=== PATIENT | female | born 1985 | race Caucasian/White ===

== ENCOUNTER → 2017-04-21 | Outpatient (CLI) | payer OTHER ==
--- NOTE | 2017-04-21 15:50 | CT ---
EXAMINATION TYPE: CT abdomen pelvis wo con DATE OF EXAM: 04/21/2017 COMPARISON: 03/16/2010 HISTORY: Painful urination and hematuria. CT DLP: 224.80 mGycm Automated exposure control for dose reduction was used. TECHNIQUE: Helical acquisition of images was performed from the lung bases through the pelvis. FINDINGS: LUNG BASES: No significant abnormality is appreciated. LIVER/GB: No significant abnormality is appreciated within the liver. Gallbladder is surgically absen t. PANCREAS: No significant abnormality is seen. SPLEEN: No significant abnormality is seen. ADRENALS: No significant abnormality is seen. KIDNEYS: 2 mm left lower pole nonobstructing renal calculus is present. No ureteral calculus or hydro nephrosis is seen bilaterally. No right-sided renal calculi are present. FREE AIR: No free air is visualized ADENOPATHY: None visualized URINARY BLADDER: Urinary bladder is nondistended and cannot be evaluated. OSSEOUS STRUCTURES: Solitary sclerotic focus is seen within the left proximal femur, most commonly r elating to benign bone island. This is unchanged in the prior exam of 03/16/2010 and presumed to be be nign. BOWEL: No significant abnormality is seen. Appendix is air-filled and within normal limits of size. There is mild diastases recti. IMPRESSION: 1. NONOBSTRUCTING 2 MM LEFT RENAL CALCULUS. NO EVIDENCE OF OBSTRUCTIVE UROPATHY BILATERALLY. 2. URINARY BLADDER IS DECOMPRESSED AND UNABLE TO BE ASSESSED BY CT. CORRELATION WITH URINALYSIS IS RE COMMENDED.
== END | disposition home or self-care (01) ==
LOC: RADCTMAIN 15:04
PROVIDERS: ATTEND Family Medicine
DX: N20.0 Calculus of kidney (principal)
CPT/HCPCS: 74176

== ENCOUNTER → 2017-08-09 | Outpatient (CLI) | payer OTHER | END | disposition home or self-care (01) | LOC: LABWHC1 13:00 | PROVIDERS: ATTEND Nurse Practitioner Family | DX: B71.9 Cestode infection, unspecified (principal) | CPT/HCPCS: 87045; 87046 ==

== ENCOUNTER 2018-05-30 15:46 | Emergency (ER) | payer OTHER ==
[2018-05-30] MEDS ORDERED: SODIUM CHLORIDE 0.9% 1,000 ML IV ONE (16:02)
[2018-05-30] MEDS ORDERED: ACETAMINOPHEN TAB 325 MG TAB PO STA (16:13)
--- NOTE | 2018-05-30 16:26 | ED ---
Abdominal Pain HPI - General Chief Complaint: Abdominal Pain Stated Complaint: Possible Kidney infection Time Seen by Provider: 05/30/18 15:53 Source: patient Mode of arrival: ambulatory Limitations: no limitations - History of Present Illness Initial Comments: 33-year-old female with history of kidney stones, ovarian cysts, endometriosis presenting today for chief complaint of bilateral mid to low back pain and pain with urination. Patient states that she has had local kidney stones in the past , she has not followed up with urology however she passes stones every 6 months she states that the symptoms at that time his pain with urination sometimes there is hematuria and she states the stones in the toilet. Patient states that for the past few weeks she has had the symptoms of pain with urination identical to when she has had still for the past she denies any hematuria at this time. Yesterday she began noticing bilateral mid back pain she stated at the level of the kidneys and chills. The pain fluctuates in intensity, she states it's worse it is 8 out of 10 currently is a 5 out of 10 she describes as a dull aching pain. Patient was concerned about a kidney infection when symptoms persisted today she presented for evaluation. Prior to arrival at 1pm pt took 800mg of ibuprofen for pain mgmt. Patient denies a recorded temperature however she states she has felt warm. Patient denies any abdominal pain, nausea, vomiting, diarrhea, recent travel, vaginal bleeding, chest pain, shortness of breath, dyspnea on exertion, frequency, urgency, hematochezia, melena, headache, dizziness. Associated symptoms. Upon arrival patient appears well, nontoxic. Initial HR elevated at 108 bpm. Remainder of ROS (-) - Related Data Previous Rx's Medication Instructions Recorded Ciprofloxacin HCl [Cipro] 500 mg PO Q12H 7 Days #14 tab 05/30/18 Allergies Allergy/AdvReac Type Severity Reaction Status Date / Time Penicillins Allergy Unknown Verified 05/30/18 16:37 Childhood Sulfa (Sulfonamide Allergy Nausea & Verified 05/30/18 16:37 Antibiotics) Vomiting Review of Systems ROS Statement: Those systems with pertinent positive or pertinent negative responses have been documented in the HPI. ROS Other: All systems not noted in ROS Statement are negative. Constitutional: Reports: fever (pt stated she felt warm), chills. Denies: night sweats Eyes: Denies: eye pain ENT: Denies: ear pain, throat pain Respiratory: Denies: cough, dyspnea, wheezes, hemoptysis, stridor Cardiovascular: Denies: chest pain, palpitations, dyspnea on exertion Endocrine: Denies: fatigue Gastrointestinal: Denies: abdominal pain, nausea, vomiting, diarrhea, constipation, hematemesis, melena, hematochezia Genitourinary: Reports: dysuria, hematuria (none currently, but has had in past) . Denies: urgency, frequency, discharge Musculoskeletal: Reports: back pain (mid/low back pain b/l) Skin: Denies: rash, lesions Neurological: Denies: headache, weakness, numbness, paresthesias, confusion, abnormal gait Past Medical History Past Medical History: Asthma, Thyroid Disorder Additional Past Medical History / Comment(s): kidney stones History of Any Multi-Drug Resistant Organisms: None Reported Past Surgical History: Tonsillectomy, Tubal Ligation Additional Past Surgical History / Comment(s): tonsillectomy 1992, gallbladder 2004, uterine ablation Past Anesthesia/Blood Transfusion Reactions: No Reported Reaction Past Psychological History: No Psychological Hx Reported Smoking Status: Never smoker Past Alcohol Use History: Rare Past Drug Use History: None Reported - Past Family History Father Family Medical History: Coronary Artery Disease (CAD) General Exam - General Exam Comments Initial Comments: General: The patient is awake and alert, in no distress, and does not appear acutely ill. Eye: Pupils are equal, round and reactive to light, extra-ocular movements are intact. No nystagmus. There is normal conjunctiva bilaterally. No signs of icterus. Ears, nose, mouth and throat: There are moist mucous membranes and no oral lesions. Neck: The neck is supple, there is no tenderness or JVD. Cardiovascular: There is a regular rate and rhythm. No murmur, rub or gallop is appreciated. Respiratory: Lungs are clear to auscultation, respirations are non-labored, breath sounds are equal. No wheezes, stridor, rales, or rhonchi. Gastrointestinal: No noted diaphoresis, jaundice, pallor, protecting postures or squirming. Symmetrical pigmentation of abdomen without signs of inflammation, or striae. Umbilicus mildline, inverted without swelling. No dilated veins. No noted abdominal distention. No visible masses. No peristalsis, aortic pulsations, or ventral hernia. Bowel sounds audible in all 4 quadrants, unremarkable. No friction rubs or venous hums. No epigastic, hepatic or abdominal bruits. No tenderness to light or deep palpation. Liver edge, not palpable. Spleen edge, right and left kidney not palpable. Superior bladder margin non-tender. Special Testing: Negative [place], Rovsing, McBurney, Kisha, cutaneous hyperesthesia. Iliopsoas and obturator tests negative bilaterally. Negative Heel Jar test.. No CVA tenderness. Digital rectal exam deferred. Negative campbell turners or cullens sign Musculoskeletal: Normal ROM, no tenderness. Strength 5/5. Sensation intact. Radial pulses equal bilaterally 2+. Neurological: A&O x 3. CN II-XII intact, There are no obvious motor or sensory deficits. Coordination appears grossly intact. Speech is normal. Skin: Skin is warm and dry and no rashes or lesions are noted. Psychiatric: Cooperative, appropriate mood & affect, normal judgment. Limitations: no limitations Course Vital Signs 05/30/18 05/30/18 15:48 20:52 Temperature 98.2 F 97.8 F Pulse Rate 108 H 99 Respiratory 20 18 Rate Blood Pressure 120/81 125/80 O2 Sat by Pulse 96 99 Oximetry Medical Decision Making - Medical Decision Making UA positive for leukocyte esterase or white blood cells and urine bacteria, pending culture. CT of abdomen and pelvis without contrast revealed no evidence of renal calculi or hydronephrosis. There is no stranding noted. All findings were discussed with patient, including incidental finding of ovarian cyst. Patient states that she is aware that this will seek appropriate follow- up. At this time given patient clinical presentation, I feel she has pyelonephritis. Patient was given 2 g Rocephin IVPB as well as 500mg ciprofloxacin by mouth. Patient given outside Rx for ciprofloxacin 500 mg twice a day 7 days. In addition I recommended urology follow-up for chronic kidney stones. Patient is agreeable with plan, denies questions at this time. Pt has no history of immunocompromise, VS stable at this time I feel pt is stable for discharge with f/u with primary and urology. Case discussed with Dr. Toledo who agreed wt impression and plan. Return parameters discussed at length patient who verbalizes understanding. Patient states she is ready for discharge and would like to go home. Patient discharged in stable condition. - Lab Data Result diagrams: 05/30/18 16:28 05/30/18 16:28 Lab Results 05/30/18 05/30/18 05/30/18 Range/Units 16:28 16:28 16:28 WBC 11.5 H (3.8-10.6) k/uL RBC 4.88 (3.80-5.40) m/uL Hgb 14.3 (11.4-16.0) gm/dL Hct 42.1 (34.0-46.0) % MCV 86.4 (80.0-100.0) fL MCH 29.3 (25.0-35.0) pg MCHC 33.9 (31.0-37.0) g/dL RDW 12.5 (11.5-15.5) % Plt Count 283 (150-450) k/uL Neutrophils % 86 % Lymphocytes % 7 % Monocytes % 5 % Eosinophils % 0 % Basophils % 0 % Neutrophils # 9.9 H (1.3-7.7) k/uL Lymphocytes # 0.8 L (1.0-4.8) k/uL Monocytes # 0.5 (0-1.0) k/uL Eosinophils # 0.0 (0-0.7) k/uL Basophils # 0.0 (0-0.2) k/uL Sodium 141 (137-145) mmol/L Potassium 3.6 (3.5-5.1) mmol/L Chloride 108 H (98-107) mmol/L Carbon Dioxide 22 (22-30) mmol/L Anion Gap 11 mmol/L BUN 10 (7-17) mg/dL Creatinine 0.75 (0.52-1.04) mg/dL Est GFR (CKD-EPI)AfAm >90 (>60 ml/min/1.73 sqM) Est GFR (CKD-EPI)NonAf >90 (>60 ml/min/1.73 sqM) Glucose 104 H (74-99) mg/dL Calcium 9.2 (8.4-10.2) mg/dL Total Bilirubin 1.2 (0.2-1.3) mg/dL AST 35 (14-36) U/L ALT 36 (9-52) U/L Alkaline Phosphatase 81 (38-126) U/L Total Protein 7.3 (6.3-8.2) g/dL Albumin 3.9 (3.5-5.0) g/dL Urine Color Yellow Urine Appearance Turbid H (Clear) Urine pH 6.0 (5.0-8.0) Ur Specific [place] 1.019 (1.001-1.035) Urine Protein 2+ H (Negative) Urine Glucose (UA) Negative (Negative) Urine Ketones Negative (Negative) Urine Blood Large H (Negative) Urine Nitrite Negative (Negative) Urine Bilirubin Negative (Negative) Urine Urobilinogen <2.0 (<2.0) mg/dL Ur Leukocyte Esterase Large H (Negative) Urine RBC 61 H (0-5) /hpf Urine WBC >182 H (0-5) /hpf Urine WBC Clumps Many H (None) /hpf Ur Squamous Epith Cells 3 (0-4) /hpf Urine Bacteria Moderate H (None) /hpf Urine Mucus Many H (None) /hpf Urine HCG, Qual (Not Detectd) 05/30/18 Range/Units 16:28 WBC (3.8-10.6) k/uL RBC (3.80-5.40) m/uL Hgb (11.4-16.0) gm/dL Hct (34.0-46.0) % MCV (80.0-100.0) fL MCH (25.0-35.0) pg MCHC (31.0-37.0) g/dL RDW (11.5-15.5) % Plt Count (150-450) k/uL Neutrophils % % Lymphocytes % % Monocytes % % Eosinophils % % Basophils % % Neutrophils # (1.3-7.7) k/uL Lymphocytes # (1.0-4.8) k/uL Monocytes # (0-1.0) k/uL Eosinophils # (0-0.7) k/uL Basophils # (0-0.2) k/uL Sodium (137-145) mmol/L Potassium (3.5-5.1) mmol/L Chloride (98-107) mmol/L Carbon Dioxide (22-30) mmol/L Anion Gap mmol/L BUN (7-17) mg/dL Creatinine (0.52-1.04) mg/dL Est GFR (CKD-EPI)AfAm (>60 ml/min/1.73 sqM) Est GFR (CKD-EPI)NonAf (>60 ml/min/1.73 sqM) Glucose (74-99) mg/dL Calcium (8.4-10.2) mg/dL Total Bilirubin (0.2-1.3) mg/dL AST (14-36) U/L ALT (9-52) U/L Alkaline Phosphatase (38-126) U/L Total Protein (6.3-8.2) g/dL Albumin (3.5-5.0) g/dL Urine Color Urine Appearance (Clear) Urine pH (5.0-8.0) Ur Specific [place] (1.001-1.035) Urine Protein (Negative) Urine Glucose (UA) (Negative) Urine Ketones (Negative) Urine Blood (Negative) Urine Nitrite (Negative) Urine Bilirubin (Negative) Urine Urobilinogen (<2.0) mg/dL Ur Leukocyte Esterase (Negative) Urine RBC (0-5) /hpf Urine WBC (0-5) /hpf Urine WBC Clumps (None) /hpf Ur Squamous Epith Cells (0-4) /hpf Urine Bacteria (None) /hpf Urine Mucus (None) /hpf Urine HCG, Qual Not Detected (Not Detectd) Disposition Clinical Impression: Pyelonephritis Disposition: HOME SELF-CARE Condition: Good Instructions: Kidney Infection (ED) Additional Instructions: Please use medication as discussed. Please follow-up with family doctor in the next 2 days. Please seek urology in the next week. Please return to emergency room if the symptoms increase or worsen or for any other concerns. Prescriptions: Ciprofloxacin HCl [Cipro] 500 mg PO Q12H 7 Days #14 tab Is patient prescribed a controlled substance at d/c from ED?: No Referrals: Kellen Guardado MD [Primary Care Provider] - 1-2 days Artur Ga MD [STAFF PHYSICIAN] - 1-2 days Time of Disposition: 20:07
[2018-05-30 16:44] LABS: Appearance,Urine Turbid (Clear); Bacteria,Urine Moderate /hpf; Bilirubin,Urine Negative (Negative); Blood,Urine Large (Negative); Color,Urine Yellow; Glucose,Urine (UA) Negative (Negative); Ketones,Urine Negative (Negative); Leukocyte Esterase,Urine Large (Negative); Mucus,Urine Many /hpf; Nitrite,Urine Negative (Negative); Protein,Urine 2+ (Negative); RBC,Urine 61 /hpf (0-5); Specific Gravity,Urine 1.019 (1.001-1.035); Squamous Epithelial Cell,Urine 3 /hpf (0-4); Urobilinogen,Urine <2.0 mg/dL (<2.0)
[2018-05-30 16:46] LABS: Basophils % (A) 0 %; Eosinophils % (A) 0 %; HCT 42.1 % (34.0-46.0); HGB 14.3 gm/dL (11.4-16.0); Lymphocytes # (A) 0.8 k/uL (1.0-4.8); Lymphocytes % (A) 7 %; MCH 29.3 pg (25.0-35.0); MCHC 33.9 g/dL (31.0-37.0); MCV 86.4 fL (80.0-100.0); Mean Platelet Volume 6.1; Monocytes # (A) 0.5 k/uL (0-1.0); Monocytes % (A) 5 %; Neutrophils # (A) 9.9 k/uL (1.3-7.7); Neutrophils % (A) 86 %; Platelet Count 283 k/uL (150-450); RBC 4.88 m/uL (3.80-5.40); RDW 12.5 % (11.5-15.5); WBC 11.5 k/uL (3.8-10.6)
[2018-05-30 16:53] LABS: ALT 36 U/L (9-52); AST 35 U/L (14-36); Albumin 3.9 g/dL (3.5-5.0); Alkaline Phosphatase 81 U/L (38-126); Anion Gap 11 mmol/L; Blood Urea Nitrogen 10 mg/dL (7-17); Calcium 9.2 mg/dL (8.4-10.2); Carbon Dioxide 22 mmol/L (22-30); Chloride 108 mmol/L (98-107); Glucose 104 mg/dL (74-99); Potassium 3.6 mmol/L (3.5-5.1); Sodium 141 mmol/L (137-145); Total Bilirubin 1.2 mg/dL (0.2-1.3); Total Protein 7.3 g/dL (6.3-8.2)
--- NOTE | 2018-05-30 16:53 | XR ---
EXAMINATION TYPE: XR KUB, 2 views DATE OF EXAM: 05/30/2018 COMPARISON: NONE HISTORY: Pain, left-sided. History renal calcifications TECHNIQUE: 2 upright views FINDINGS: Visualized lung bases and pleural spaces are negative. No pneumoperitoneum or pneumatosis. The bowel gas pattern is normal. No visceromegaly or mass. No definite calcifications over the renal shadows. Overlying bowel gas make s it difficult to exclude ureteral calcifications. No acute skeletal findings. IMPRESSION: No acute radiographic process.
--- NOTE | 2018-05-30 19:11 | CT ---
EXAMINATION TYPE: CT abdomen pelvis wo con DATE OF EXAM: 05/30/2018 COMPARISON: 04/21/2017 CT HISTORY: Bilateral flank pain CT DLP: 366.9 mGycm Automated exposure control for dose reduction was used. TECHNIQUE: Helical acquisition of images was performed from the lung bases through the pelvis. FINDINGS: Within the limits of noncontrast CT and scattered beam hardening artifact, the following observations are made. LUNG BASES: No significant abnormality is appreciated. LIVER/GB: No significant abnormality is appreciated. PANCREAS: No significant abnormality is seen. SPLEEN: No significant abnormality is seen. ADRENALS: No significant abnormality is seen. KIDNEYS: No significant abnormality is seen. No hydronephrosis or hydroureter. FREE AIR: No free air is visualized RETROPERITONEAL ADENOPATHY: None visualized REPRODUCTIVE ORGANS: Posteriorly are bilateral adnexal smoothly marginated hypodense rounded foci, in the appearance of bilateral ovarian cysts, measuring 4 cm mean diameter on the left and 2 cm mean di ameter on the right. These are more conspicuous presently, likely functional ovarian cysts which can be proven with two-week or six-week follow-up pelvic ultrasound. There is a small volume of [place] c fluid on the present study, like she likely physiologic. URINARY BLADDER: No significant abnormality is seen. PELVIC ADENOPATHY: None visualized. OSSEOUS STRUCTURES: No significant abnormality is seen. BOWEL: No definite acute hollow viscera process. 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 There is mild conrad stinctness and thickening of the right lateral conal fascia, a nonspecific finding. IMPRESSION: NO DEFINITE ACUTE PROCESS, CT WITHOUT CONTRAST.
[2018-05-30] MEDS ORDERED: CIPROFLOXACIN HCL 500 MG TAB PO STA (19:21)
[2018-05-30] MEDS ORDERED: cefTRIAXone 2,000 MG in SODIUM CHLORIDE 0.9% 100 ML IVPB STA (19:40)
[2018-05-30 20:53] VITALS: BP 125/80; PULSE 99; RESP 18; TEMP 97.8
== END 2018-05-30 20:54 | disposition home or self-care (01) ==
LOC: EC 15:46
DX: N12 Tubulo-interstitial nephritis, not specified as acute or chronic (principal); N83.209 Unspecified ovarian cyst, unspecified side; Z88.0 Allergy status to penicillin; Z88.2 Allergy status to sulfonamides
CPT/HCPCS: 36415; 80053; 85025; 81001; 81025; 87086; 74018; 74176; 99284; 96365; 96361 ×2; J0696; 87077; 87186

== ENCOUNTER 2019-09-10 19:08 | Emergency (ER) | payer OTHER ==
[2019-09-10] MEDS ORDERED: MORPHINE SULFATE 4 MG/ML SYRINGE IV STA (19:29)
[2019-09-10] MEDS ORDERED: ONDANSETRON 4 MG/2 ML VIAL IVP STA (19:29)
[2019-09-10 20:02] LABS: Basophils % (A) 0 %; Eosinophils # (A) 0.1 k/uL (0-0.7); Eosinophils % (A) 1 %; HCT 44.5 % (34.0-46.0); HGB 15.1 gm/dL (11.4-16.0); Lymphocytes # (A) 1.2 k/uL (1.0-4.8); Lymphocytes % (A) 10 %; MCH 29.4 pg (25.0-35.0); MCV 86.5 fL (80.0-100.0); Mean Platelet Volume 6.5; Monocytes # (A) 0.4 k/uL (0-1.0); Monocytes % (A) 3 %; Neutrophils # (A) 10.7 k/uL (1.3-7.7); Neutrophils % (A) 85 %; Platelet Count 376 k/uL (150-450); RBC 5.15 m/uL (3.80-5.40); RDW 12.6 % (11.5-15.5); WBC 12.5 k/uL (3.8-10.6)
[2019-09-10 20:06] LABS: Appearance,Urine Slightly Cloudy (Clear); Color,Urine Yellow
[2019-09-10 20:08] LABS: Bilirubin,Urine Negative (Negative); Blood,Urine Large (Negative); Glucose,Urine (UA) Negative (Negative); Ketones,Urine Negative (Negative); Nitrite,Urine Negative (Negative); Protein,Urine 1+ (Negative); Urobilinogen,Urine <2.0 mg/dL (<2.0)
[2019-09-10 20:09] LABS: ALT 39 U/L (4-34); AST 40 U/L (14-36); African American GFR (CKD) >90 (>60 ml/min/1.73 sqM); Albumin 4.7 g/dL (3.5-5.0); Alkaline Phosphatase 76 U/L (38-126); Anion Gap 10 mmol/L; Blood Urea Nitrogen 10 mg/dL (7-17); Calcium 9.4 mg/dL (8.4-10.2); Carbon Dioxide 25 mmol/L (22-30); Chloride 104 mmol/L (98-107); Glucose 128 mg/dL (74-99); Leukocyte Esterase,Urine Negative (Negative); Mucus,Urine Many /hpf; Non-African American GFR(CKD) >90 (>60 ml/min/1.73 sqM); Potassium 3.9 mmol/L (3.5-5.1); RBC,Urine 35 /hpf (0-5); Sodium 139 mmol/L (137-145); Squamous Epithelial Cell,Urine 1 /hpf (0-4); Total Bilirubin 0.7 mg/dL (0.2-1.3); WBC,Urine 4 /hpf (0-5)
--- NOTE | 2019-09-10 21:03 | US ---
EXAMINATION TYPE: US transvaginal DATE OF EXAM: 09/10/2019 COMPARISON: CT, US CLINICAL HISTORY: rlq pelvic pain. RLQ pelvic pain intermittently. Worse x 7 hours. Hx ovarian cysts, endometriosis, uterine ablation, tubal ligation. . TECHNIQUE: Transvaginal (TV). Date of LMP: Unknown. EXAM MEASUREMENTS: Uterus: 8.7 x 5.6 x 4.1 cm Endometrial Stripe: 0.95 cm Right Ovary: 3.1 x 2.0 x 1.7 cm Left Ovary: 6.7 x 5.9 x 4.0 cm 1. Uterus: Anteverted. Appears heterogeneous. Multiple anechoic areas seen. Largest measures: 0.9 x 0.9 x 0.5 cm. 2. Endometrium: Anechoic areas seen within as mentioned above. ?Appears thickened? 3. Right Ovary: Anechoic areas seen. Largest: 1.0 x 0.9 x 0.6 cm. Flow is shown. 4. Left Ovary: Appears enlarged. Large complex area seen: 5.5 x 5.6 x 4.1 cm. Flow is shown around p eriphery. Spectral, color and waveform doppler imaging shows arterial and venous flow within the ovaries; the re is no evidence for ovarian torsion. 5. Bilateral Adnexa: Appear to be wnl. 6. Posterior cul-de-sac: Fluid is seen. IMPRESSION: There is complex large left ovarian cyst. No evidence of ovarian torsion. Small endometri al cystic fluid collections.
--- NOTE | 2019-09-10 21:34 | ED ---
Abdominal Pain HPI - General Chief Complaint: Abdominal Pain Stated Complaint: Right Side Pain Time Seen by Provider: 09/10/19 19:23 Source: patient Mode of arrival: ambulatory Limitations: no limitations - History of Present Illness Initial Comments: This 34-year-old white female presents with a complaint of some right lower quadrant abdominal pain. This is been present over the last 2-3 days. She also relates intermittent fairly persistent symptomatology for years. She states that she took some ibuprofen today with limited relief. She has had ovarian cysts in the past and this feels similar. She denies any fevers, chills, vomiting, constipation, or diarrhea. She has had some nausea. She denies any urinary symptoms. She has followed up with Dr. Orr for her previous pregnancies, tubal ligation, and uterine ablation. No other complaints or modifying factors. - Related Data Previous Rx's Medication Instructions Recorded Ondansetron Odt [Zofran ODT] 4 mg PO Q8HR PRN #10 tab 09/10/19 traMADol HCl [Ultram] 50 - 100 mg PO Q6H PRN #15 tab 09/10/19 Allergies Allergy/AdvReac Type Severity Reaction Status Date / Time Penicillins Allergy Unknown Verified 09/10/19 19:11 Childhood Sulfa (Sulfonamide Allergy Nausea & Verified 09/10/19 19:11 Antibiotics) Vomiting Review of Systems ROS Statement: Those systems with pertinent positive or pertinent negative responses have been documented in the HPI. ROS Other: All systems not noted in ROS Statement are negative. Past Medical History Past Medical History: Asthma, Thyroid Disorder Additional Past Medical History / Comment(s): kidney stones History of Any Multi-Drug Resistant Organisms: None Reported Past Surgical History: Tonsillectomy, Tubal Ligation Additional Past Surgical History / Comment(s): tonsillectomy 1992, gallbladder 2004, uterine ablation Past Anesthesia/Blood Transfusion Reactions: No Reported Reaction Past Psychological History: No Psychological Hx Reported Smoking Status: Never smoker Past Alcohol Use History: Rare Past Drug Use History: None Reported - Past Family History Father Family Medical History: Coronary Artery Disease (CAD) General Exam - General Exam Comments Initial Comments: GENERAL: The patient is well nourished and well hydrated. VITAL SIGNS: Heart rate, blood pressure, respiratory rate reviewed as recorded in nurse's notes. EYES: Pupils are round and reactive. Extraocular movements are intact. No conjunctival / lid redness or swelling. ENT: No external evidence of injury, swelling, or ecchymosis. Airway is patent. Throat is clear. NECK: Nontender. No swelling or evidence of injury. No subcutaneous emphysema. Trachea is midline. No thyroid mass. HEART: Regular rate and rhythm. Good peripheral pulses. LUNGS/CHEST: Breath sounds clear and equal bilaterally. No rales, rhonchi, or wheezes. No ecchymosis, subcutaneous emphysema, or tenderness. ABDOMEN: There is some mild tenderness noted into the right lower quadrant. No palpable masses or organomegaly. No peritoneal signs. No abdominal wall swelling or ecchymosis. EXTREMITIES: No extremity tenderness. Normal muscle tone and function. No thoracolumbar tenderness. NEUROLOGIC: Sensation is grossly intact. Cranial nerve exam reveals face is symmetrical, tongue is midline, speech is clear. SKIN: No abrasions or ecchymosis is noted. No induration or masses noted. PSYCHIATRIC: Alert and oriented. Appropriate behavior and judgment. Limitations: no limitations Course Vital Signs 09/10/19 19:12 Temperature 97.6 F Pulse Rate 68 Respiratory 22 Rate Blood Pressure 143/99 O2 Sat by Pulse 100 Oximetry Medical Decision Making - Medical Decision Making The patient was seen and examined. All diagnostics were reviewed. The white blood cell count is slightly elevated but remainder labs are unremarkable. She also had a pelvic ultrasound done which shows a large left ovarian cyst with the largest measurement at approximately 5.7 cm. There is some free fluid in the pelvis as well. The patient receives an IV with some fluids, Zofran, and 4 mg of morphine intravenously. She is feeling much improved on recheck. Her pain is resolved on recheck. Is felt as though her ovarian cyst is fairly large. She likely does have the pain on the right side due to a slight rupture over her ovarian cyst and fluid irritation to her peritoneum. There is no evidence of torsion. It is felt as though she is stable for discharge but should have close follow-up with her [employer] physician. She is agreeable to this plan. - Lab Data Result diagrams: 09/10/19 19:25 09/10/19 19:25 Lab Results 09/10/19 09/10/19 09/10/19 Range/Units 19:25 19:25 19:25 WBC 12.5 H (3.8-10.6) k/uL RBC 5.15 (3.80-5.40) m/uL Hgb 15.1 (11.4-16.0) gm/dL Hct 44.5 (34.0-46.0) % MCV 86.5 (80.0-100.0) fL MCH 29.4 (25.0-35.0) pg MCHC 34.0 (31.0-37.0) g/dL RDW 12.6 (11.5-15.5) % Plt Count 376 (150-450) k/uL Neutrophils % 85 % Lymphocytes % 10 % Monocytes % 3 % Eosinophils % 1 % Basophils % 0 % Neutrophils # 10.7 H (1.3-7.7) k/uL Lymphocytes # 1.2 (1.0-4.8) k/uL Monocytes # 0.4 (0-1.0) k/uL Eosinophils # 0.1 (0-0.7) k/uL Basophils # 0.0 (0-0.2) k/uL Sodium 139 (137-145) mmol/L Potassium 3.9 (3.5-5.1) mmol/L Chloride 104 (98-107) mmol/L Carbon Dioxide 25 (22-30) mmol/L Anion Gap 10 mmol/L BUN 10 (7-17) mg/dL Creatinine 0.73 (0.52-1.04) mg/dL Est GFR (CKD-EPI)AfAm >90 (>60 ml/min/1.73 sqM) Est GFR (CKD-EPI)NonAf >90 (>60 ml/min/1.73 sqM) Glucose 128 H (74-99) mg/dL Calcium 9.4 (8.4-10.2) mg/dL Total Bilirubin 0.7 (0.2-1.3) mg/dL AST 40 H (14-36) U/L ALT 39 H (4-34) U/L Alkaline Phosphatase 76 (38-126) U/L Total Protein 8.0 (6.3-8.2) g/dL Albumin 4.7 (3.5-5.0) g/dL Urine Color Yellow Urine Appearance Slightly Cloudy H (Clear) Urine pH 6.0 (5.0-8.0) Ur Specific [place] 1.030 (1.001-1.035) Urine Protein 1+ H (Negative) Urine Glucose (UA) Negative (Negative) Urine Ketones Negative (Negative) Urine Blood Large (Negative) Urine Nitrite Negative (Negative) Urine Bilirubin Negative (Negative) Urine Urobilinogen <2.0 (<2.0) mg/dL Ur Leukocyte Esterase Negative (Negative) Urine RBC 35 H (0-5) /hpf Urine WBC 4 (0-5) /hpf Ur Squamous Epith Cells 1 (0-4) /hpf Urine Mucus Many H (None) /hpf Urine HCG, Qual (Not Detectd) 09/10/19 Range/Units 19:25 WBC (3.8-10.6) k/uL RBC (3.80-5.40) m/uL Hgb (11.4-16.0) gm/dL Hct (34.0-46.0) % MCV (80.0-100.0) fL MCH (25.0-35.0) pg MCHC (31.0-37.0) g/dL RDW (11.5-15.5) % Plt Count (150-450) k/uL Neutrophils % % Lymphocytes % % Monocytes % % Eosinophils % % Basophils % % Neutrophils # (1.3-7.7) k/uL Lymphocytes # (1.0-4.8) k/uL Monocytes # (0-1.0) k/uL Eosinophils # (0-0.7) k/uL Basophils # (0-0.2) k/uL Sodium (137-145) mmol/L Potassium (3.5-5.1) mmol/L Chloride (98-107) mmol/L Carbon Dioxide (22-30) mmol/L Anion Gap mmol/L BUN (7-17) mg/dL Creatinine (0.52-1.04) mg/dL Est GFR (CKD-EPI)AfAm (>60 ml/min/1.73 sqM) Est GFR (CKD-EPI)NonAf (>60 ml/min/1.73 sqM) Glucose (74-99) mg/dL Calcium (8.4-10.2) mg/dL Total Bilirubin (0.2-1.3) mg/dL AST (14-36) U/L ALT (4-34) U/L Alkaline Phosphatase (38-126) U/L Total Protein (6.3-8.2) g/dL Albumin (3.5-5.0) g/dL Urine Color Urine Appearance (Clear) Urine pH (5.0-8.0) Ur Specific [place] (1.001-1.035) Urine Protein (Negative) Urine Glucose (UA) (Negative) Urine Ketones (Negative) Urine Blood (Negative) Urine Nitrite (Negative) Urine Bilirubin (Negative) Urine Urobilinogen (<2.0) mg/dL Ur Leukocyte Esterase (Negative) Urine RBC (0-5) /hpf Urine WBC (0-5) /hpf Ur Squamous Epith Cells (0-4) /hpf Urine Mucus (None) /hpf Urine HCG, Qual Not Detected (Not Detectd) Disposition Clinical Impression: Acute abdominal pain, Ovarian cyst, Nausea Disposition: HOME SELF-CARE Condition: Good Instructions (If sedation given, give patient instructions): Ovarian Cyst (ED), Abdominal Pain (ED) Additional Instructions: You also may take Tylenol and/or Motrin if needed for pain. Prescriptions: traMADol HCl [Ultram] 50 - 100 mg PO Q6H PRN #15 tab PRN Reason: Pain Ondansetron Odt [Zofran ODT] 4 mg PO Q8HR PRN #10 tab PRN Reason: Nausea And Vomiting Is patient prescribed a controlled substance at d/c from ED?: Yes When asked, does pt state using other controlled substances?: No If prescribed controlled substance>3 days was MAPS reviewed?: Prescribed <3 Days Referrals: Kellen Guardado MD [Primary Care Provider] - 1-2 days Marcelina Peterson DO [Doctor of Osteopathic Medicine] - As Soon As Possible Time of Disposition: 21:32
[2019-09-10 21:53] VITALS: BP 129/79; PULSE 79; RESP 20; TEMP 97
== END 2019-09-10 21:53 | disposition home or self-care (01) ==
LOC: EC 19:08
DX: N83.202 Unspecified ovarian cyst, left side (principal); R11.0 Nausea; Z88.0 Allergy status to penicillin; Z88.2 Allergy status to sulfonamides
CPT/HCPCS: 36415; 80053; 85025; 81001; 81025; 93975; 76830; 99284; 96374; 96375; J2270; J2405

== ENCOUNTER → 2021-12-02 | Outpatient (CLI) | payer BC ==
--- NOTE | 2021-12-02 10:16 | US ---
EXAMINATION TYPE: US thyroid st tissue head/neck DATE OF EXAM: 12/02/2021 COMPARISON: NONE CLINICAL HISTORY: E04.9 NONTOXIC GOITER. Patient complains of hair loss and fatigue GLAND SIZE: Right Lobe: 4.0 x 1.1 x 0.9 cm Overall Parenchyma: homogenous Left Lobe: 3.8 x 1.1 x 0.8 cm Overall Parenchyma: homogeneous Isthmus Thickness: 0.3 cm NODULES RIGHT: # of nodules measured on right: 0 LEFT: # of nodules measured on left: 0 ISTHMUS: # of nodules measured in the isthmus: 0 Bilateral neck scanned, no evidence of lymphadenopathy. IMPRESSION: Normal study
== END | disposition home or self-care (01) ==
LOC: MERGE 09:40 → RADUSWWP 09:48
PROVIDERS: ATTEND Family Medicine
DX: E04.9 Nontoxic goiter, unspecified (principal); R53.83 Other fatigue; L65.9 Nonscarring hair loss, unspecified
CPT/HCPCS: 76536

== ENCOUNTER → 2022-07-22 | Outpatient (CLI) | payer BC ==
[2022-07-22 18:39] LABS: Basophils # (A) 0.03 X 10*3/uL (0.00-0.10); Basophils % (A) 0.6 %; Eosinophils # (A) 0.11 X 10*3/uL (0.04-0.35); Eosinophils % (A) 2.1 %; HCT 43.5 % (37.2-46.3); HGB 14.5 g/dL (12.0-15.0); Immature Grans, Automated 0.4 %; Lymphocytes # (A) 1.82 X 10*3/uL (0.90-5.00); Lymphocytes % (A) 34.3 %; MCHC 33.3 g/dL (32.0-37.0); Mean Platelet Volume 9.2 fL (9.5-12.2); Monocytes # (A) 0.36 X 10*3/uL (0.20-1.00); Monocytes % (A) 6.8 %; NRBC Per 100 WBC 0 /100 WBCS (0.0-0.0); Neutrophils # (A) 2.97 X 10*3/uL (1.80-7.70); Neutrophils % (A) 55.8 %; Platelet Count 312 X 10*3/uL (140-440); RDW 12.5 % (11.5-14.5); WBC 5.31 X 10*3/uL (4.50-10.00)
[2022-07-23 01:18] LABS: % Iron Saturation 33.33 (12.00-45.00); ALT 26 U/L (8-44); AST 27 U/L (13-35); African American GFR (CKD) 88.3 (60.0-200.0); Albumin 4.6 g/dL (3.8-4.9); Albumin/Globulin Ratio 1.77 (1.60-3.17); Alkaline Phosphatase 77 U/L (41-126); BUN/Creat Ratio 15.85 Ratio (12.00-20.00); Blood Urea Nitrogen 15.2 mg/dL (9.0-27.0); Calcium 9.6 mg/dL (8.7-10.3); Carbon Dioxide 18.9 mmol/L (20.0-27.5); Chloride 105 mmol/L (96-109); Chol/HDL Ratio 2.71 Ratio; Globulin 2.6 g/dL (1.6-3.3); Glucose 86 mg/dL (70-110); Iron 112 ug/dL (50-170); LDL Cholesterol,Calculated 111.3 mg/dL (0.0-131.0); Non-African American GFR(CKD) 76.2 (60.0-200.0); Potassium 4.4 mmol/L (3.5-5.5); Sodium 142 mmol/L (135-145); Total Iron Binding Capacity 336 ug/dL (228-460); Total Protein 7.1 g/dL (6.2-8.2); VLDL Calculation 16.94 mg/dL (5.00-40.00)
== END | disposition home or self-care (01) ==
LOC: LABWHC1 09:59
PROVIDERS: ATTEND Family Medicine
DX: Z00.00 Encounter for general adult medical examination without abnormal findings (principal); C65.9 Malignant neoplasm of unspecified renal pelvis; E78.5 Hyperlipidemia, unspecified; E61.1 Iron deficiency; E53.8 Deficiency of other specified B group vitamins; E03.9 Hypothyroidism, unspecified; E55.9 Vitamin D deficiency, unspecified; R00.2 Palpitations
CPT/HCPCS: 36415; 80053; 80061; 82306; 82607; 83540; 83550; 83835; 84439; 84443; 85025

== ENCOUNTER → 2022-08-20 | Outpatient (CLI) | payer BC ==
--- NOTE | 2022-08-23 08:24 | MM ---
Reason for Exam: Screening (asymptomatic). Patient History: Menarche at age 12. First Full-Term at age 22. Left ovary removed at age 36. Right ovary removed at age 36. Hysterectomy at age 36. Hormonal Contraceptives for 2 years from age 16 until age 18. 09/03/2007, Benign MG pre op needle loc LT - 2 on the left side. 08/24/2007, High risk US biopsy breast VAD LT - 2 on the left side. 02/20/2007, Bilateral Benign Core Biopsy. Maternal aunt had breast cancer, age 40. Last menstrual period: 10/30/2014 Risk Values: Eva 5 year model risk: 0.9%. NCI Lifetime model risk: 16.3%. Staff Notes: BASELINE. Prior Study Comparison: 08/24/2007 Left Diagnostic Mammogram, [facility]. Tissue Density: The breast tissue is heterogeneously dense. This may lower the sensitivity of mammography. Findings: Analyzed By CAD. There is no suspicious group of microcalcifications or new suspicious mass in either breast. Overall Assessment: Negative, BI-RAD 1 Management: Screening Mammogram of both breasts in 1 year. A clinical breast exam by your physician is recommended on an annual basis and results should be correlated with mammographic findings. Electronically signed and approved by: Agustin Mckeon D.O.
== END | disposition home or self-care (01) ==
LOC: RADMAMWWP 09:26
PROVIDERS: ATTEND Family Medicine
DX: Z12.31 Encounter for screening mammogram for malignant neoplasm of breast (principal); Z80.3 Family history of malignant neoplasm of breast; Z98.890 Other specified postprocedural states
CPT/HCPCS: 77063; 77067

== ENCOUNTER → 2023-09-02 | Outpatient (CLI) | payer BC ==
--- NOTE | 2023-09-05 08:43 | MM ---
Reason for Exam: Screening (asymptomatic). Last mammogram was performed 1 year(s) and 1 month(s) ago. Patient History: Menarche at age 12. First Full-Term at age 22. Left ovary removed at age 36. Right ovary removed at age 36. Hysterectomy at age 36. Hormonal Contraceptives for 2 years from age 16 until age 18. 09/03/2007, Benign MG pre op needle loc LT - 2 on the left side. 08/24/2007, High risk US biopsy breast VAD LT - 2 on the left side. 02/20/2007, Bilateral Benign Core Biopsy. Paternal aunt had breast cancer, age 40. Risk Values: Eva 5 year model risk: 1.0%. NCI Lifetime model risk: 16.1%. Prior Study Comparison: 08/24/2007 Left Diagnostic Mammogram, [facility]. 08/20/2022 Bilateral MG 3D screening mammo w/cad, [facility]. Tissue Density: The breast tissue is heterogeneously dense. This may lower the sensitivity of mammography. Findings: Analyzed By CAD. There is no suspicious group of microcalcifications or new suspicious mass. Overall Assessment: Negative, BI-RAD 1 Management: Screening Mammogram of both breasts in [address] [facility] will attempt to contact patient to return for supplemental views and ultrasound if indicated. Patient should continue monthly self-breast exams. A clinical breast exam by your physician is recommended on an annual basis. This exam should not preclude additional follow-up of suspicious palpable abnormalities. Note on Eva scores and lifetime risk: 1. A Eva score greater than 3% is considered moderate risk. If this is the case, consider specialist referral to assess eligibility for a risk reducing agent. 2. If overall lifetime risk for the development of breast cancer is 20% or higher, the patient may qualify for future screening with alternating mammogram and breast MRI. Electronically signed and approved by: Jarett Zurita DO
== END | disposition home or self-care (01) ==
LOC: RADMAMWWP 09:31
PROVIDERS: ATTEND Family Medicine
DX: Z12.31 Encounter for screening mammogram for malignant neoplasm of breast (principal); Z80.3 Family history of malignant neoplasm of breast
CPT/HCPCS: 77063; 77067

== ENCOUNTER → 2024-11-07 | Outpatient (CLI) | payer BC ==
--- NOTE | 2024-11-07 11:02 | MM ---
Reason for Exam: Screening (asymptomatic). Last mammogram was performed 1 year(s) and 2 month(s) ago. Patient History: Menarche at age 12. First Full-Term at age 22. Left ovary removed at age 36. Right ovary removed at age 36. Hysterectomy at age 36. Hormonal Contraceptives for 2 years from age 16 until age 18. 09/03/2007, Benign MG pre op needle loc LT - 2 on the left side. 08/24/2007, High risk US biopsy breast VAD LT - 2 on the left side. 02/20/2007, Bilateral Benign Core Biopsy. Paternal aunt had breast cancer, age 40. Risk Values: Eva 5 year model risk: 1.2%. NCI Lifetime model risk: 16.0%. Prior Study Comparison: 08/24/2007 Left Diagnostic Mammogram, [facility]. 08/20/2022 Bilateral MG 3D screening mammo w/cad, [facility] 09/02/2023 Bilateral MG 3D screening mammo w/cad, [facility]. Tissue Density: There are scattered areas of fibroglandular density. Findings: Analyzed By CAD. There is no suspicious group of microcalcifications or new suspicious mass in either breast. Overall Assessment: Negative, BI-RAD 1 Management: Screening Mammogram of both breasts in 1 year. . Patient should continue monthly self-breast exams. A clinical breast exam by your physician is recommended on an annual basis. This exam should not preclude additional follow-up of suspicious palpable abnormalities. Note on Eva scores and lifetime risk: 1. A Eva score greater than 3% is considered moderate risk. If this is the case, consider specialist referral to assess eligibility for a risk reducing agent. 2. If overall lifetime risk for the development of breast cancer is 20% or higher, the patient may qualify for future screening with alternating mammogram and breast MRI. [facility], , 11/07/2024 10:00 AM. Electronically signed and approved by: Dante Lorenzo M.D. Radiologis
== END | disposition home or self-care (01) ==
LOC: RADMAMWWP 09:43
PROVIDERS: ATTEND Family Medicine
DX: Z12.31 Encounter for screening mammogram for malignant neoplasm of breast (principal); R92.323 Mammographic fibroglandular density, bilateral breasts; Z92.0 Personal history of contraception; Z80.3 Family history of malignant neoplasm of breast
CPT/HCPCS: 77063; 77067